=== PATIENT | male | born 1980 | race Caucasian/White ===

== ENCOUNTER → 2024-05-15 07:06 | Outpatient (REF) | payer OTHER, SELFPAY | LOC: RAD 07:06 | PROVIDERS: ATTENDING PHYSICIAN Orthopaedic Surgery; FAMILY PHYSICIAN Family Medicine | DX: S42.142A Displaced fracture of glenoid cavity of scapula, left shoulder, initial encounter for closed fracture (principal); S43.005A Unspecified dislocation of left shoulder joint, initial encounter | CPT/HCPCS: 73200 ==